=== PATIENT | male | born 1950 | race African-American/Black ===

== ENCOUNTER 2016-08-17 11:10 | Inpatient (IN) | payer OTHER ==
[2016-08-17 12:07] VITALS: BMI 24.9
--- NOTE | 2016-08-17 13:49 | HP ---
COWS - Scale Resting Pulse: 0= NE 80 or Below Sweatin=Flushed/Facial Moisture Restless Observation: 1= Difficult to Sit Still Pupil Size: 0= Normal to Room Light Bone or Joint Aches: 2= Severe Diffuse Aches Runny Nose/ Eye Tearin= Runny Nose/Eyes GI Upset > 30mins: 1= Stomach Cramp Tremor Observation: 2= Slight Tremor Visible Yawning Observation: 2= >3x During Session Anxiety or Irritability: 2=Irritable/Anxious Goose Flesh Skin: 0=Smooth Skin COWS Score: 14 CIWA Score - CIWA Score Nausea/Vomitin-No Nausea/No Vomiting Muscle Tremors: 4-Moderate,w/Arms Extend Anxiety: 3 Agitation: 4-Moderately Restless Paroxysmal Sweats: 3 Orientation: 0-Oriented Tacttile Disturbances: 0-None Auditory Disturbances: 0-None Visual Disturbances: 0-None Headache: 1-Very Mild CIWA-Ar Total Score: 15 Admission ROS BHS - HPI Chief Complaint: I am here to detox off these drugs. Allergies/Adverse Reactions: Allergies Allergy/AdvReac Type Severity Reaction Status Date / Time No Known Allergies Allergy Verified 08/17/16 11:50 History of Present Illness: pt is a 66yr old male with a history of alcohol and heroin dependence seeking detox for treatment. Exam Limitations: No Limitations - Ebola screening Have you traveled outside of the country in the last 21 days: No Have you had contact with anyone from an Ebola affected area: No Have you been sick,other than usual withdrawal symptoms: No Do you have a fever: No - Review of Systems Constitutional: Chills, Diaphoresis, Night Sweats, Changes in sleep EENT: reports: Tearing, Nose Congestion Respiratory: reports: No Symptoms reported Cardiac: reports: No Symptoms Reported GI: reports: Poor Fluid Intake : reports: Other (hesitancy) Musculoskeletal: reports: No Symptoms Reported Integumentary: reports: Flushing, Sweating Neuro: reports: Headache, Tingling, Tremors Endocrine: reports: Flushing, Intolerance to Cold, Intolerance to Heat Hematology: reports: No Symptoms Reported Psychiatric: reports: Judgement Intact, Mood/Affect Appropiate, Orientated x3, Agitated, Anxious Other Systems: Reviewed and Negative Patient History - Patient Medical History Hx Anemia: No Hx Asthma: No Hx Chronic Obstructive Pulmonary Disease (COPD): No Hx Cancer: No Hx Cardiac Disorders: No Hx Hypertension: Yes Hx Hypercholesterolemia: No Hx Pacemaker: No HX Cerebrovascular Accident: No Hx Seizures: No Hx Diabetes: No Hx Gastrointestinal Disorders: No Hx Liver Disease: No Hx Genitourinary Disorders: No Hx Sexually Transmitted Disorders: No Hx Renal Disease (ESRD): No Hx Thyroid Disease: No Hx Human Immunodeficiency Virus (HIV): No (negative) Hx Hepatitis C: Yes (diagnosed 1992 treated) Hx Depression: No Hx Suicide Attempt: No (denies) Hx Bipolar Disorder: No Hx Schizophrenia: No - Patient Surgical History Past Surgical History: No Hx Neurologic Surgery: No Hx Cataract Extraction: No Hx Cardiac Surgery: No Hx Lung Surgery: No Hx Breast Surgery: No Hx Breast Biopsy: No Hx Abdominal Surgery: No Hx Appendectomy: No Hx Cholecystectomy: No Hx Genitourinary Surgery: No Hx Section: No Hx Orthopedic Surgery: No Anesthesia Reaction: No - PPD History Previous Implant?: Yes Documented Results: Positive w/o proof Results: CXR(-), 09/08/14 PPD to be Administered?: No - Reproductive History Patient is a Female of Child Bearing Age (11 -55 yrs old): No - Smoking Cessation Smoking history: Current every day smoker Have you smoked in the past 12 months: Yes Aproximately how many cigarettes per day: 6 Hx Chewing Tobacco Use: No Initiated information on smoking cessation: Yes 'Breaking Loose' booklet given: 08/17/16 - Substance & Tx. History Hx Alcohol Use: Yes Hx Substance Use: Yes Substance Use Type: Alcohol, Heroin Hx Substance Use Treatment: Yes - Substances Abused Heroin Route: Inhalation Frequency: Daily Amount used: 6-8 bags Age of first use: 16 Date of Last Use: 08/16/16 Alcohol-beer Route: Oral Frequency: Daily Amount used: 3-4 (12 oz.)/ 1 pt. (gin) Age of first use: 14 Date of Last Use: 08/16/16 Family Disease History - Family Disease History Family Disease History: Heart Disease: Mother (HTN/alzheimer) Admission Physical Exam BHS - Vital Signs Vital Signs: Vital Signs - 24 hr 08/17/16 11:54 Temperature 97 F L Pulse Rate 44 L Respiratory 18 Rate Blood Pressure 182/89 - Physical General Appearance: Yes: Appropriately Dressed, Moderate Distress, Thin, Tremorous, Irritable, Sweating HEENTM: Yes: Hearing grossly Normal, Normal Voice Respiratory: Yes: Lungs Clear, Normal Breath Sounds, No Respiratory Distress Neck: Yes: No masses,lesions,Nodules Breast: Yes: Within Normal Limits Cardiology: Yes: Regular Rhythm, Regular Rate, S1, S2, Bradycardia Abdominal: Yes: Normal Bowel Sounds, Non Tender, Soft Genitourinary: Yes: Within Normal Limits Back: Yes: Normal Inspection Musculoskeletal: Yes: full range of Motion Extremities: Yes: Normal Capillary Refill, Normal Inspection, Tremors Neurological: Yes: Fully Oriented, Alert, Normal Response Integumentary: Yes: Normal Color Lymphatic: Yes: Within Normal Limits - Diagnostic (1) Alcohol dependence with uncomplicated withdrawal Current Visit: Yes Status: Chronic (2) Opioid dependence, uncomplicated Current Visit: Yes Status: Chronic (3) Hypertension Current Visit: Yes Status: Chronic Qualifiers: Hypertension type: essential hypertension Qualified Code(s): I10 - Essential (primary) hypertension (4) Nicotine dependence Current Visit: Yes Status: Chronic Qualifiers: Nicotine product type: cigarettes Substance use status: uncomplicated Qualified Code(s): F17.210 - Nicotine dependence, cigarettes, uncomplicated Cleared for Admission S - Detox or Rehab [facility] Level of Care: Medically Managed Detox Regimen/Protocol: Methadone/Librium S Breath Alcohol Content Breath Alcohol Content: 0 Urine Drug Screen - Results Drug Screen Negative: No Urine Drug Screen Results: OPI-Opiates
[2016-08-17] MEDS ORDERED: LOPERAMIDE HCL 2 MG CAPSULE PO PRN (13:50)
[2016-08-17] MEDS ORDERED: hydrOXYzine PAMOATE 50 MG CAPSULE (FP) PO PRN (13:50)
[2016-08-17] MEDS ORDERED: chlordiazePOXIDE HCL 25 MG CAPSULE PO PRN (13:50)
[2016-08-17] MEDS ORDERED: MENTHOL/PHENOL 1 EACH UD MM PRN (13:50)
[2016-08-17] MEDS ORDERED: P-EPHED 60MG/TRIPROLIDI 2.5MG TABLET PO PRN (13:50)
[2016-08-17] MEDS ORDERED: guaiFENesin/D-METHORPHAN HB 10 ML UNIT-DOSE CUPS PO PRN (13:50)
[2016-08-17] MEDS ORDERED: IBUPROFEN 400 MG TABLET (FP) PO PRN (13:50)
[2016-08-17] MEDS ORDERED: MAGNESIUM CITRATE 300 ML BOTTLE PO PRN (13:50)
[2016-08-17] MEDS ORDERED: ACETAMINOPHEN 325 MG TABLET (FP) PO PRN (13:50)
[2016-08-17] MEDS ORDERED: MAGNESIUM HYDROX 2400MG/30ML ORAL SUSPENSION 30 ML CUP PO PRN (13:50)
[2016-08-17] MEDS ORDERED: MAG HYDROX/AL HYDROX/SIMETH 30 ML UNIT-DOSE CUP PO PRN (13:50)
[2016-08-17] MEDS ORDERED: chlordiazePOXIDE HCL 25 MG CAPSULE PO ONE (14:04)
[2016-08-17] MEDS ORDERED: METHADONE HCL 10 MG TABLET (FOR DETOX USE ONLY) PO ONE ×2 (14:06→23:00)
[2016-08-17] MEDS ORDERED: cloNIDine HCL 0.1 MG TABLET PO ONE (15:36)
[2016-08-17] MEDS ORDERED: ENALAPRIL MALEATE 10 MG TABLET (FP) PO SCH (15:36)
[2016-08-17] MEDS: chlordiazePOXIDE HCL 25 MG CAPSULE PO SCH ×2 (17:29→22:02)
[2016-08-17 18:40] LABS: URINE APPEARANCE TURBID; URINE BILIRUBIN NEGATIVE (NEGATIVE); URINE BLOOD NEGATIVE (NEGATIVE); URINE GLUCOSE (UA) NEGATIVE (NEGATIVE); URINE KETONE NEGATIVE (NEGATIVE); URINE LEUK ESTERASE NEGATIVE (NEGATIVE); URINE NITRITE NEGATIVE (NEGATIVE); URINE PROTEIN NEGATIVE (NEGATIVE); URINE UROBILINOGEN 2.0 E.U/dl E.U./dl (0.2-1.0)
[2016-08-17 18:42] LABS: URINE COLOR YELLOW
[2016-08-17] MEDS: THIAMINE HCL 100 MG TABLET (FP) PO SCH (22:01)
[2016-08-17] MEDS: diphenhydrAMINE HCL 50 MG CAPSULE PO PRN (22:02)
[2016-08-18] MEDS: chlordiazePOXIDE HCL 25 MG CAPSULE PO SCH ×4 (05:54→22:06)
[2016-08-18] MEDS ORDERED: METHADONE HCL 10 MG TABLET (FOR DETOX USE ONLY) PO SCH (10:00)
[2016-08-18] MEDS: ENALAPRIL MALEATE 10 MG TABLET (FP) PO SCH (10:13)
[2016-08-18] MEDS: HYDROCHLOROTHIAZIDE 25 MG TABLET (FP) PO SCH (10:13)
[2016-08-18] MEDS: ASPIRIN COATED 81 MG TABLET.EC PO SCH (10:13)
[2016-08-18] MEDS: amLODIPine BESYLATE 10 MG TABLET (FP) PO SCH (10:13)
[2016-08-18] MEDS: PRENATAL VITAMINS W/ FOLIC ACID TABLET (FP) PO SCH (10:13)
[2016-08-18 10:22] LABS: MCH 26.6 pg (25.7-33.7); MCHC 32.6 g/dl (32.0-35.9); MEAN CELL VOLUME 81.3 fl (80-96); MEAN PLT VOLUME 7.4 fl (7.5-11.1); PLATELET COUNT 217 K/MM3 (134-434); RDW 14.7 % (11.9-15.9)
[2016-08-18 10:29] LABS: ALBUMIN 3.2 g/dl (3.4-5.0); ANION GAP 9 (8-16); CALCIUM 8.5 mg/dL (8.5-10.1); CO2 30 mmol/L (21-32); CREATININE 1.1 mg/dL (0.7-1.3); GLUCOSE,RANDOM 95 mg/dL (74-106); SGOT/AST 23 U/L (15-37); SGPT/ALT 23 U/L (12-78)
[2016-08-18 10:30] LABS: ALK PHOS 56 U/L (45-117); BILIRUBIN,TOTAL 0.6 mg/dL (0.2-1.0)
--- NOTE | 2016-08-18 10:43 | PN ---
[facility] CIWA - CIWA Score Nausea/Vomitin-No Nausea/No Vomiting Muscle Tremors: 4-Moderate,w/Arms Extend Anxiety: 4-Mod. Anxious/Guarded Agitation: 4-Moderately Restless Paroxysmal Sweats: 1-Minimal Palms Moist Orientation: 0-Oriented Tacttile Disturbances: 3-Moderate Itch/Numb/Burn Auditory Disturbances: 0-None Visual Disturbances: 0-None Headache: 0-None Present CIWA-Ar Total Score: 16 S COWS - Scale Resting Pulse: 0= [place] 80 or Below Sweatin= Chills/Flushing Restless Observation: 3= Extraneous Movement Pupil Size: 2= Moderately Dilated Bone or Joint Aches: 4=Acute Joint/Muscle Pain Runny Nose/ Eye Tearin= Nasal Congestion GI Upset > 30mins: 1= Stomach Cramp Tremor Observation of Outstretched Hands: 1= Tremor [place], Not Seen Yawning Observation: 1= 1-2x During Session Anxiety or Irritability: 2=Irritable/Anxious Goose Flesh Skin: 0=Smooth Skin COWS Score: 16 [facility] Progress Note (SOAP) Subjective: ANXIETY,SWEATS,CHILLS,STOMACH CRAMPS,IRRITABILITY,INTERMITTENT SLEEP. Objective: 08/18/16 10:43 Vital Signs Temperature 98.1 F 08/18/16 06:27 Pulse Rate 53 L 08/18/16 06:27 Respiratory Rate 18 08/18/16 06:27 Blood Pressure 141/84 08/18/16 06:27 O2 Sat by Pulse Oximetry (%) Laboratory Last Values WBC 4.0 K/mm3 (4.0-10.0) 08/18/16 07:30 RBC 4.43 M/mm3 (4.00-5.60) 08/18/16 07:30 Hgb 11.8 GM/dL (11.7-16.9) D 08/18/16 07:30 Hct 36.1 % (35.4-49) D 08/18/16 07:30 MCV 81.3 fl (80-96) 08/18/16 07:30 MCHC 32.6 g/dl (32.0-35.9) 08/18/16 07:30 RDW 14.7 % (11.9-15.9) 08/18/16 07:30 Plt Count 217 K/MM3 (134-434) D 08/18/16 07:30 MPV 7.4 fl (7.5-11.1) L D 08/18/16 07:30 Urine Color Yellow 08/17/16 15:00 Urine Appearance Turbid 08/17/16 15:00 Urine pH 5.0 (5.0-8.0) 08/17/16 15:00 Ur Specific [place] 1.027 (1.001-1.035) 08/17/16 15:00 Urine Protein Negative (NEGATIVE) 08/17/16 15:00 Urine Glucose (UA) Negative (NEGATIVE) 08/17/16 15:00 Urine Ketones Negative (NEGATIVE) 08/17/16 15:00 Urine Blood Negative (NEGATIVE) 08/17/16 15:00 Urine Nitrite Negative (NEGATIVE) 08/17/16 15:00 Urine Bilirubin Negative (NEGATIVE) 08/17/16 15:00 Urine Urobilinogen 2.0 e.u/dl E.U./dl (0.2-1.0) 08/17/16 15:00 Ur Leukocyte Esterase Negative (NEGATIVE) 08/17/16 15:00 Assessment: 08/18/16 10:43 WITHDRAWAL SX Plan: CONTINUE DETOX
[2016-08-18] MEDS: THIAMINE HCL 100 MG TABLET (FP) PO SCH (22:06)
[2016-08-18] MEDS: diphenhydrAMINE HCL 50 MG CAPSULE PO PRN (22:07)
[2016-08-19] MEDS: chlordiazePOXIDE HCL 25 MG CAPSULE PO SCH ×2 (05:52→10:09)
[2016-08-19] MEDS: METHADONE HCL 5 MG TABLET (FOR DETOX USE ONLY) PO SCH (10:09)
[2016-08-19] MEDS: PRENATAL VITAMINS W/ FOLIC ACID TABLET (FP) PO SCH (10:09)
[2016-08-19] MEDS: amLODIPine BESYLATE 10 MG TABLET (FP) PO SCH (10:09)
[2016-08-19] MEDS: ENALAPRIL MALEATE 10 MG TABLET (FP) PO SCH (10:09)
[2016-08-19] MEDS: ASPIRIN COATED 81 MG TABLET.EC PO SCH (10:09)
[2016-08-19] MEDS: HYDROCHLOROTHIAZIDE 25 MG TABLET (FP) PO SCH (10:09)
--- NOTE | 2016-08-19 15:18 | PN ---
S CIWA - CIWA Score Nausea/Vomitin Muscle Tremors: 3 Anxiety: 2 Agitation: 1-Slight > Activity Paroxysmal Sweats: 3 Orientation: 0-Oriented Tacttile Disturbances: 3-Moderate Itch/Numb/Burn Auditory Disturbances: 0-None Visual Disturbances: 2-Mild Sensitivity Headache: 0-None Present CIWA-Ar Total Score: 16 BHS COWS - Scale Resting Pulse: 0= [place] 80 or Below Sweatin=Flushed/Facial Moisture Restless Observation: 0= Sits Still Pupil Size: 0= Normal to Room Light Bone or Joint Aches: 1= Mild Discomfort Runny Nose/ Eye Tearin= Runny Nose/Eyes GI Upset > 30mins: 1= Stomach Cramp Tremor Observation of Outstretched Hands: 2= Slight Tremor Visible Yawning Observation: 1= 1-2x During Session Anxiety or Irritability: 2=Irritable/Anxious Goose Flesh Skin: 0=Smooth Skin COWS Score: 11 S Progress Note (SOAP) Subjective: H/A, Fatigue, Tremors. Objective: PT. A & O X 3. 08/19/16 15:17 Vital Signs Temperature 97.2 F L 08/19/16 13:18 Pulse Rate 69 08/19/16 13:18 Respiratory Rate 18 08/19/16 13:18 Blood Pressure 133/90 08/19/16 13:18 O2 Sat by Pulse Oximetry (%) Laboratory Last Values WBC 4.0 K/mm3 (4.0-10.0) 08/18/16 07:30 RBC 4.43 M/mm3 (4.00-5.60) 08/18/16 07:30 Hgb 11.8 GM/dL (11.7-16.9) D 08/18/16 07:30 Hct 36.1 % (35.4-49) D 08/18/16 07:30 MCV 81.3 fl (80-96) 08/18/16 07:30 MCHC 32.6 g/dl (32.0-35.9) 08/18/16 07:30 RDW 14.7 % (11.9-15.9) 08/18/16 07:30 Plt Count 217 K/MM3 (134-434) D 08/18/16 07:30 MPV 7.4 fl (7.5-11.1) L D 08/18/16 07:30 Sodium 139 mmol/L (136-145) 08/18/16 07:30 Potassium 3.3 mmol/L (3.5-5.1) L 08/18/16 07:30 Chloride 100 mmol/L (98-107) 08/18/16 07:30 Carbon Dioxide 30 mmol/L (21-32) 08/18/16 07:30 Anion Gap 9 (8-16) 08/18/16 07:30 BUN 11 mg/dL (7-18) D 08/18/16 07:30 Creatinine 1.1 mg/dL (0.7-1.3) D 08/18/16 07:30 Creat Clearance w eGFR > 60 (>60) 08/18/16 07:30 Random Glucose 95 mg/dL (74-106) 08/18/16 07:30 Calcium 8.5 mg/dL (8.5-10.1) 08/18/16 07:30 Total Bilirubin 0.6 mg/dL (0.2-1.0) 08/18/16 07:30 AST 23 U/L (15-37) 08/18/16 07:30 ALT 23 U/L (12-78) 08/18/16 07:30 Alkaline Phosphatase 56 U/L (45-117) 08/18/16 07:30 Total Protein 7.0 g/dl (6.4-8.2) 08/18/16 07:30 Albumin 3.2 g/dl (3.4-5.0) L 08/18/16 07:30 Urine Color Yellow 08/17/16 15:00 Urine Appearance Turbid 08/17/16 15:00 Urine pH 5.0 (5.0-8.0) 08/17/16 15:00 Ur Specific [place] 1.027 (1.001-1.035) 08/17/16 15:00 Urine Protein Negative (NEGATIVE) 08/17/16 15:00 Urine Glucose (UA) Negative (NEGATIVE) 08/17/16 15:00 Urine Ketones Negative (NEGATIVE) 08/17/16 15:00 Urine Blood Negative (NEGATIVE) 08/17/16 15:00 Urine Nitrite Negative (NEGATIVE) 08/17/16 15:00 Urine Bilirubin Negative (NEGATIVE) 08/17/16 15:00 Urine Urobilinogen 2.0 e.u/dl E.U./dl (0.2-1.0) 08/17/16 15:00 Ur Leukocyte Esterase Negative (NEGATIVE) 08/17/16 15:00 RPR Titer Nonreactive (NONREACTIVE) 08/18/16 07:30 Hepatitis C Antibody >11.0 s/co ratio (0.0-0.9) H 08/18/16 07:30 LABS NOTED. Assessment: 08/19/16 15:17 WITHDRAWAL SYMPTOMS. Plan: CONTINUE DETOX. K 40 MEQ X 1 NOW AND THEN 20 MEQ BID AFTER. ADVISED PATIENT TO FOLLOW-UP WITH QUALITY REVIEW TRAINER / REHAB MEDICAL PROVIDER AFTER DISCHARGE FROM DETOX FOR GENERAL MEDICAL ASSESSMENT AND FOR ANY ABNORMAL ADMISSION LAB VALUES.
[2016-08-19] MEDS ORDERED: POTASSIUM CHLORIDE TABS 20 MEQ TABLET.ER (FP) PO ONE ×2 (15:30→19:00)
[2016-08-19] MEDS: chlordiazePOXIDE 5 MG CAPSULE PO SCH ×2 (18:17→22:15)
[2016-08-19] MEDS: POTASSIUM CHLORIDE TABS 20 MEQ TABLET.ER (FP) PO SCH (22:15)
[2016-08-19] MEDS: THIAMINE HCL 100 MG TABLET (FP) PO SCH (22:15)
[2016-08-20] MEDS: chlordiazePOXIDE 5 MG CAPSULE PO SCH ×2 (05:37→10:13)
[2016-08-20] MEDS: HYDROCHLOROTHIAZIDE 25 MG TABLET (FP) PO SCH (10:12)
[2016-08-20] MEDS: ASPIRIN COATED 81 MG TABLET.EC PO SCH (10:12)
[2016-08-20] MEDS: ENALAPRIL MALEATE 10 MG TABLET (FP) PO SCH (10:13)
[2016-08-20] MEDS: METHADONE HCL 5 MG TABLET (FOR DETOX USE ONLY) PO SCH (10:13)
[2016-08-20] MEDS: POTASSIUM CHLORIDE TABS 20 MEQ TABLET.ER (FP) PO SCH ×2 (10:13→22:24)
[2016-08-20] MEDS: PRENATAL VITAMINS W/ FOLIC ACID TABLET (FP) PO SCH (10:14)
[2016-08-20] MEDS: amLODIPine BESYLATE 10 MG TABLET (FP) PO SCH (10:18)
--- NOTE | 2016-08-20 11:01 | PN ---
BHS Progress Note (SOAP) Subjective: Tremor, chills, back pain, body aches, stomach cramp, interrupted sleep Objective: 08/20/16 10:54 Last Vital Signs Temp Pulse Resp BP Pulse Ox 96.3 F L 58 L 18 156/98 08/20/16 06:35 08/20/16 06:35 08/20/16 06:35 08/20/16 06:35 Laboratory Tests 08/17/16 08/18/16 08/18/16 15:00 07:30 07:30 WBC 4.0 RBC 4.43 Hgb 11.8 D Hct 36.1 D MCV 81.3 MCHC 32.6 RDW 14.7 Plt Count 217 D MPV 7.4 L D Sodium Potassium Chloride Carbon Dioxide Anion Gap BUN Creatinine Creat Clearance w eGFR Random Glucose Calcium Total Bilirubin AST ALT Alkaline Phosphatase Total Protein Albumin Urine Color Yellow Urine Appearance Turbid Urine pH 5.0 Ur Specific [place] 1.027 Urine Protein Negative Urine Glucose (UA) Negative Urine Ketones Negative Urine Blood Negative Urine Nitrite Negative Urine Bilirubin Negative Urine Urobilinogen 2.0 e.u/dl Ur Leukocyte Esterase Negative RPR Titer Hepatitis C Antibody >11.0 H 08/18/16 08/18/16 07:30 07:30 WBC RBC Hgb Hct MCV MCHC RDW Plt Count MPV Sodium 139 Potassium 3.3 L Chloride 100 Carbon Dioxide 30 Anion Gap 9 BUN 11 D Creatinine 1.1 D Creat Clearance w eGFR > 60 Random Glucose 95 Calcium 8.5 Total Bilirubin 0.6 AST 23 ALT 23 Alkaline Phosphatase 56 Total Protein 7.0 Albumin 3.2 L Urine Color Urine Appearance Urine pH Ur Specific [place] Urine Protein Urine Glucose (UA) Urine Ketones Urine Blood Urine Nitrite Urine Bilirubin Urine Urobilinogen Ur Leukocyte Esterase RPR Titer Nonreactive Hepatitis C Antibody Labs noted: K 3.3 Assessment: 08/20/16 10:55 Withdrawal symptoms Noted with hypokalemia Plan: Continue detox Hypokalemia: supplemented, repeat BMP
[2016-08-20] MEDS: chlordiazePOXIDE HCL 10 MG CAPSULE PO SCH ×2 (17:24→22:24)
[2016-08-20] MEDS: THIAMINE HCL 100 MG TABLET (FP) PO SCH (22:24)
[2016-08-21] MEDS: chlordiazePOXIDE HCL 10 MG CAPSULE PO SCH ×2 (05:48→10:04)
[2016-08-21] MEDS ORDERED: METHADONE HCL 10 MG TABLET (FOR DETOX USE ONLY) PO SCH (10:00)
[2016-08-21] MEDS: amLODIPine BESYLATE 10 MG TABLET (FP) PO SCH (10:03)
[2016-08-21] MEDS: PRENATAL VITAMINS W/ FOLIC ACID TABLET (FP) PO SCH (10:03)
[2016-08-21] MEDS: POTASSIUM CHLORIDE TABS 20 MEQ TABLET.ER (FP) PO SCH ×2 (10:03→22:11)
[2016-08-21] MEDS: ASPIRIN COATED 81 MG TABLET.EC PO SCH (10:04)
[2016-08-21] MEDS: ENALAPRIL MALEATE 10 MG TABLET (FP) PO SCH (10:04)
[2016-08-21] MEDS: HYDROCHLOROTHIAZIDE 25 MG TABLET (FP) PO SCH (10:04)
[2016-08-21 10:51] LABS: CALCIUM 9.3 mg/dL (8.5-10.1); CREATININE 1.2 mg/dL (0.7-1.3)
--- NOTE | 2016-08-21 13:22 | PN ---
BHS Progress Note (SOAP) Subjective: Sweating,interrupted sleep,restless. Objective: 08/21/16 13:20 Vital Signs - 8 hr 08/21/16 08/21/16 08/21/16 06:22 07:41 09:45 Temperature 95.8 F L 96.9 F L Pulse Rate 59 L 64 Respiratory 16 18 Rate Blood Pressure 141/101 136/90 150/96 08/21/16 13:16 Temperature 96.1 F L Pulse Rate 57 L Respiratory 18 Rate Blood Pressure 151/93 Laboratory Tests 08/17/16 08/18/16 08/18/16 15:00 07:30 07:30 WBC 4.0 RBC 4.43 Hgb 11.8 D Hct 36.1 D MCV 81.3 MCHC 32.6 RDW 14.7 Plt Count 217 D MPV 7.4 L D Sodium Potassium Chloride Carbon Dioxide Anion Gap BUN Creatinine Creat Clearance w eGFR Random Glucose Calcium Total Bilirubin AST ALT Alkaline Phosphatase Total Protein Albumin Urine Color Yellow Urine Appearance Turbid Urine pH 5.0 Ur Specific [place] 1.027 Urine Protein Negative Urine Glucose (UA) Negative Urine Ketones Negative Urine Blood Negative Urine Nitrite Negative Urine Bilirubin Negative Urine Urobilinogen 2.0 e.u/dl Ur Leukocyte Esterase Negative RPR Titer Hepatitis C Antibody >11.0 H 08/18/16 08/18/16 08/21/16 07:30 07:30 07:40 WBC RBC Hgb Hct MCV MCHC RDW Plt Count MPV Sodium 139 140 Potassium 3.3 L 3.8 Chloride 100 102 Carbon Dioxide 30 27 Anion Gap 9 11 BUN 11 D 10 Creatinine 1.1 D 1.2 Creat Clearance w eGFR > 60 Random Glucose 95 104 Calcium 8.5 9.3 Total Bilirubin 0.6 AST 23 ALT 23 Alkaline Phosphatase 56 Total Protein 7.0 Albumin 3.2 L Urine Color Urine Appearance Urine pH Ur Specific [place] Urine Protein Urine Glucose (UA) Urine Ketones Urine Blood Urine Nitrite Urine Bilirubin Urine Urobilinogen Ur Leukocyte Esterase RPR Titer Nonreactive Hepatitis C Antibody labs noted,K+ 3.8,replaced. Assessment: 08/21/16 13:22 Withdrawal sx. Plan: Continue detox
[2016-08-21] MEDS: THIAMINE HCL 100 MG TABLET (FP) PO SCH (22:10)
[2016-08-22] MEDS ORDERED: METHADONE HCL 5 MG TABLET (FOR DETOX USE ONLY) PO SCH (06:00)
[2016-08-22 06:19] VITALS: BP 152/94; PULSE 65; TEMP 97.8
[2016-08-22] MEDS: ENALAPRIL MALEATE 10 MG TABLET (FP) PO SCH (09:14)
[2016-08-22] MEDS: HYDROCHLOROTHIAZIDE 25 MG TABLET (FP) PO SCH (09:14)
[2016-08-22] MEDS: ASPIRIN COATED 81 MG TABLET.EC PO SCH (09:15)
[2016-08-22] MEDS: PRENATAL VITAMINS W/ FOLIC ACID TABLET (FP) PO SCH (09:15)
[2016-08-22] MEDS: POTASSIUM CHLORIDE TABS 20 MEQ TABLET.ER (FP) PO SCH (09:15)
[2016-08-22] MEDS: amLODIPine BESYLATE 10 MG TABLET (FP) PO SCH (09:15)
--- NOTE | 2016-08-22 11:01 | DS ---
[facility] Detox Discharge Summary Admission Date: 08/17/16 Discharge Date: 08/22/16 - History Present History: Alcohol Dependence, Opioid Dependence Additional Comments: DETOX COMPLETED.ALERT O X 3. NAD. INSTRUCTED TO FOLLOW UP WITH PMD, DR LILY LEDEZMA FOR MEDICAL MANAGEMENT. Pertinent Past History: HTN HEP C - Physical Exam Results Vital Signs: Vital Signs Temperature 97.8 F 08/22/16 06:18 Pulse Rate 65 08/22/16 06:18 Respiratory Rate 18 08/22/16 06:18 Blood Pressure 152/94 08/22/16 06:18 O2 Sat by Pulse Oximetry (%) Pertinent Admission Physical Exam Findings: WITHDRAWAL SX Laboratory Last Values WBC 4.0 K/mm3 (4.0-10.0) 08/18/16 07:30 RBC 4.43 M/mm3 (4.00-5.60) 08/18/16 07:30 Hgb 11.8 GM/dL (11.7-16.9) D 08/18/16 07:30 Hct 36.1 % (35.4-49) D 08/18/16 07:30 MCV 81.3 fl (80-96) 08/18/16 07:30 MCHC 32.6 g/dl (32.0-35.9) 08/18/16 07:30 RDW 14.7 % (11.9-15.9) 08/18/16 07:30 Plt Count 217 K/MM3 (134-434) D 08/18/16 07:30 MPV 7.4 fl (7.5-11.1) L D 08/18/16 07:30 Sodium 140 mmol/L (136-145) 08/21/16 07:40 Potassium 3.8 mmol/L (3.5-5.1) 08/21/16 07:40 Chloride 102 mmol/L (98-107) 08/21/16 07:40 Carbon Dioxide 27 mmol/L (21-32) 08/21/16 07:40 Anion Gap 11 (8-16) 08/21/16 07:40 BUN 10 mg/dL (7-18) 08/21/16 07:40 Creatinine 1.2 mg/dL (0.7-1.3) 08/21/16 07:40 Creat Clearance w eGFR > 60 (>60) 08/18/16 07:30 Random Glucose 104 mg/dL (74-106) 08/21/16 07:40 Calcium 9.3 mg/dL (8.5-10.1) 08/21/16 07:40 Total Bilirubin 0.6 mg/dL (0.2-1.0) 08/18/16 07:30 AST 23 U/L (15-37) 08/18/16 07:30 ALT 23 U/L (12-78) 08/18/16 07:30 Alkaline Phosphatase 56 U/L (45-117) 08/18/16 07:30 Total Protein 7.0 g/dl (6.4-8.2) 08/18/16 07:30 Albumin 3.2 g/dl (3.4-5.0) L 08/18/16 07:30 Urine Color Yellow 08/17/16 15:00 Urine Appearance Turbid 08/17/16 15:00 Urine pH 5.0 (5.0-8.0) 08/17/16 15:00 Ur Specific [place] 1.027 (1.001-1.035) 08/17/16 15:00 Urine Protein Negative (NEGATIVE) 08/17/16 15:00 Urine Glucose (UA) Negative (NEGATIVE) 08/17/16 15:00 Urine Ketones Negative (NEGATIVE) 08/17/16 15:00 Urine Blood Negative (NEGATIVE) 08/17/16 15:00 Urine Nitrite Negative (NEGATIVE) 08/17/16 15:00 Urine Bilirubin Negative (NEGATIVE) 08/17/16 15:00 Urine Urobilinogen 2.0 e.u/dl E.U./dl (0.2-1.0) 08/17/16 15:00 Ur Leukocyte Esterase Negative (NEGATIVE) 08/17/16 15:00 RPR Titer Nonreactive (NONREACTIVE) 08/18/16 07:30 Hepatitis C Antibody >11.0 s/co ratio (0.0-0.9) H 08/18/16 07:30 PREVIOUS HX OF HEP C - Treatment Hospital Course: Detox Protocol Followed, Detoxed Safely, Responded well, Discharged Condition Good - Medication Discharge Medications: Ambulatory Orders Amlodipine Besylate [Norvasc -] 10 mg PO DAILY 09/07/14 Enalapril Maleate [Vasotec -] 10 mg PO DAILY 09/07/14 Hydrochlorothiazide [Hctz -] 25 mg PO DAILY 09/07/14 Aspirin [Aspirin EC] 81 mg PO DAILY 08/17/16 - Diagnosis (1) Alcohol dependence with uncomplicated withdrawal Status: Acute (2) Hypertension Status: Chronic Qualifiers: Hypertension type: essential hypertension Qualified Code(s): I10 - Essential (primary) hypertension (3) Nicotine dependence Status: Acute Qualifiers: Nicotine product type: cigarettes Substance use status: in withdrawal Qualified Code(s): F17.213 - Nicotine dependence, cigarettes, with withdrawal (4) Opioid dependence, uncomplicated Status: Acute - AMA Did Patient Leave Against Medical Advice: No
--- NOTE | 2016-08-22 17:02 | EKG ---
Test Reason : Blood Pressure : / mmHG Vent. Rate : 046 BPM Atrial Rate : 046 BPM P-R Int : 172 ms QRS Dur : 098 ms QT Int : 430 ms P-R-T Axes : 012 -06 -24 degrees QTc Int : 376 ms SINUS BRADYCARDIA VOLTAGE CRITERIA FOR LEFT VENTRICULAR HYPERTROPHY NONSPECIFIC ST AND T WAVE ABNORMALITY ABNORMAL ECG NO PREVIOUS ECGS AVAILABLE Confirmed by MICHAEL TOMLINSON MD ([id number]) on 08/22/2016 5:02:07 PM Referred By: Confirmed By:MICHAEL TOMLINSON MD
== END 2016-08-22 09:30 | disposition home or self-care (01) | DRG 897 ==
LOC: YASAS 11:10 → Y3N 12:40
PROVIDERS: ADMIT Internal Medicine Addiction Medicine; ATTEND Internal Medicine Addiction Medicine
PROC: HZ2ZZZZ Detoxification Services for Substance Abuse Treatment (ICD-10-PCS; principal; 2016-08-22)
DX: F11.20 Opioid dependence, uncomplicated (principal); F10.230 Alcohol dependence with withdrawal, uncomplicated; F17.213 Nicotine dependence, cigarettes, with withdrawal; I10 Essential (primary) hypertension
CPT/HCPCS: 36415; 71020-TC; 80048; 80053; 81003; 85027; 86593; 87522; 93005; 93010